=== PATIENT | female | born 1930 | race Caucasian/White ===

== ENCOUNTER 2017-05-24 18:58 | Inpatient (IN) | payer MEDICARE, OTHER ==
--- NOTE | 2017-04-29 22:35 | NUR ---
PT DAUGHTER SOFYA DOUGHERTY GIVE ALL INFORMATION TO ADMIT THE PT PT UNABLE TO ASSESS
--- NOTE | 2017-05-19 22:10 | NUR ---
PT COMPLAINING OF PAIN GENERAL BODY 09/05. TYLENOL GIVEN ORDER AND REPOSITION PT FOR COMFORT.
[~2017-05-24] VITALS: Ht 165.1 cm; Wt 52.2 kg
--- NOTE | 2017-05-24 18:59 | NUR ---
PT PLACED IN BED 3 BY EMS
[2017-05-24 19:04] VITALS: BP 125/65
--- NOTE | 2017-05-24 19:30 | NUR ---
87Y/F BIBA D/T ALOC. PT WAS LAST SEEN "NORMAL" AT 0830 AT DIALYSIS PER EMS. PT NORMALLY ABLE TO SPEAK AND HOLD CONVERSATION, PT IS AWAKE AND ALERT AT THIS TIME AND FOLLOWING COMMANDS BUT UNABLE TO SPEAK. PT IS MOANING TO PAINFUL STIMULI. PT HAS MULTIPLE BRUISES AND LARGE HEMATOMA TO LEFT SIDE OF HEAD FROM PREVIOUS FALL. PT IN BED SIDE RALS UP X2.
[2017-05-24] MEDS ORDERED: ACETAMINOPHEN 650 MG SUPP RC ONE (19:35)
[2017-05-24] MEDS ORDERED: VANCOMYCIN 1,000 MG in DEXTROSE 5% 250 ML IV ONE (20:50)
[2017-05-24] MEDS ORDERED: LEVOFLOXACIN 750 MG/D5W PREMIX 150 ML IV ONE (20:50)
--- NOTE | 2017-05-24 21:30 | NUR ---
UNABLE TO COLLECT URINE SPECIMEN AT THIS TIME, PT REFUSED AT THIS TIME.
[2017-05-24] MEDS ORDERED: DOCUSATE SODIUM 100 MG GELCAP PO PRN (21:55)
--- NOTE | 2017-05-24 21:57 | NUR ---
Patient noted to have existing wounds upon arrival to ER. Photos taken of wound and placed in chart. Wound covered with dressing. Physician informed.
--- NOTE | 2017-05-24 22:00 | NUR ---
LAB UNABLE TO DRAW BLOOD, STATES "PT TO DEHYDRATED", GABBY CALZADA MADE AWARE.
[2017-05-24] MEDS ORDERED: SYN.075 PO (22:11)
[2017-05-24] MEDS ORDERED: VANCOMYCIN 1,000 MG VIAL ONE (22:11)
[2017-05-24] MEDS ORDERED: [UNRECOGNIZED DRUG - CODE] PO (22:11)
[2017-05-24] MEDS ORDERED: ACET-2619 PO (22:11)
[2017-05-24] MEDS ORDERED: SEVE400T PO (22:11)
[2017-05-24] MEDS ORDERED: PRO5 PO (22:11)
[2017-05-24] MEDS ORDERED: WARF1TAB PO (22:11)
[2017-05-24] MEDS ORDERED: DIGO0.121 PO (22:11)
[2017-05-24] MEDS ORDERED: BUPR-10 PO (22:11)
--- NOTE | 2017-05-24 22:18 | NUR ---
LAB CALLED TO REDRAW LABS, LAB WILL REDRAW ON THE FLOOR, GABBY CALZADA MADE AWARE. UNABLE TO START IV ABX DUE TO UNABLE TO DRAW LABS. GABBY CALZADA MADE AWARE.
--- NOTE | 2017-05-24 22:24 | NUR ---
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 DIFF HX. NEED ISOLATION BED ON FLOOR.
[2017-05-24 22:35] VITALS: BP 144/62
--- NOTE | 2017-05-24 22:35 | NUR ---
PT BEING SENT TO FLOOR W/ ABX LEVAQUIN AND VANCOMYCIN. UNABLE TO START IV ABXS D/T LAB UNABLE TO DRAW CULTURES FROM PT.
--- NOTE | 2017-05-24 22:35 | NUR ---
PT ADMITTING FROM ER VIA RACHEL AT [id number]
--- NOTE | 2017-05-24 22:37 | NUR ---
Patient will be admitted to care of [facility]. Admited to TELE. Will go to room 116. Belongings list completed. Report to EDGAR. Addendum: 05/25/17 at 0556 by VetCloudMINH PT ADMITED VSS STABLE TO THAT OF ARRIVAL TO ED.
[2017-05-24] MEDS ORDERED: ALBUTEROL SULFATE/IPRATROPIU 3 ML SOL IH ONE (23:22)
[2017-05-24] MEDS ORDERED: DEXTROSE 50% 50 ML SYR IVP ONE (23:24)
[2017-05-24] MEDS ORDERED: DEXTROSE 50% 50 ML SYR IVP SCH (23:25)
[2017-05-24] MEDS ORDERED: ALBUTEROL SULFATE/IPRATROPIU 3 ML SOL IH SCH (23:30)
--- NOTE | 2017-05-24 23:35 | NUR ---
RECEIVED PT FROM ER VIA GURNEY PT ON NON REBREATHING MASK 02 SAT 80% PT ON LABORED BREATHING RESP THERAPY WAS CALLED AND IMMEDIATELY AT PT SIDE ASSISTING TO STABILIZER RESP STATUS PT ON TELEMETRY VARIABLE FLUTTER 97 BP 144/62 TEMP 100.6 PT HAS MULTIPLES WOUND FOR ALL HER BODY AND A BIG BUMP ON LEFT FOREHEAD BRUISES, HL ON RT HAND AND INDEX FINGER GAUGE 24 , DIALYSIS PT AV SHUNT ON LEFT UPPER ARM RELATIVES AT BED SIDE . Addendum: 05/25/17 at 0029 by Danielle Mendoza RN PT ADMITTING FROM ER AT [id number]
--- NOTE | 2017-05-24 23:38 | NUR ---
BLOOD SUGAR TEST 58 D5% 50 ML GIVEN IV PUSH BY RESIDENT ORDER AND ALSO BLOOD GASES ORDER PENDING RESULT
--- NOTE | 2017-05-24 23:38 | NUR ---
9805 rapid response called. hhntx given and abg drawn. pt on nrb mask at 100%. abg drawn on hhntx 8l flow.unable to get pox reading patients fingers are to cold. dr chris at bedside
[2017-05-24] MEDS: NACL 0.9% 1,000 ML IV SCH (23:39)
[2017-05-25] VITALS (12 sets, daily range): BP systolic 91–131; BP diastolic 44–63
--- NOTE | 2017-05-25 | NUR ---
PT TRANSFER TO ICU TO BED #3 LEVAQUIN INFUSING AND PENDING TO INFUSED VANCOMYCIN,
--- NOTE | 2017-05-25 | NUR ---
PATIENT RECEIVED TRANSFERRED FROM TELEMETRY ON A GURNEY WITH 2 STAFF AND FAMILY. PATIENT AWAKE, LETHARGIC. SKIN WARM AND DRY TO TOUCH, NOTED FINGERTIPS CYANOTIC AND COLD TO TOUCH. RESPIRATIONS OF 28 BPM ON O2 WITH NON-REBREATHER MASK AT 10 LPM. ATTACHED TO LEADS FOR MONITORING. NOTED MULTIPLE SKIN ISSUES. PATIENT HAS A BUMP TO THE LEFT SIDE OF THE FOREHEAD, MULTIPLE SCABS ALL OVER THE BODY, LEFT UPPER ARM AV SHUNT, NO BLEEDING NOTED, +/+ BRUITS AND THRILLS.
[2017-05-25] MEDS ORDERED: ALBUTEROL SULFATE/IPRATROPIU 3 ML SOL IH PRN (00:10)
--- NOTE | 2017-05-25 00:10 | NUR ---
PATIENT NOTED BECOMING LESS RESPONSIVE, FEELING COOL TO TOUCH. CHECKED BLOOD SUGAR 11 MG/DL. RECHECKED BLOOD SUGAR 12 MG/DL. GIVEN D50 IVP. WILL CONTINUE TO MONITOR PATIENT.
[2017-05-25] MEDS ORDERED: DEXTROSE 50% 50 ML SYR IVP ONE (00:22)
--- NOTE | 2017-05-25 00:30 | NUR ---
PATIENT INCONTINENT OF BM, INCONTINENT CARE PROVIDED, TURNED AND REPOSITIONED PATIENT. WILL CONTINUE TO MONITOR.
[2017-05-25] MEDS ORDERED: DEXT 5% / NACL 0.45% 1,000 ML IV STA (00:32)
--- NOTE | 2017-05-25 01:10 | NUR ---
PLACED PATIENT ON 8L OXYMIZER. SATS 100%.
--- NOTE | 2017-05-25 01:21 | NUR ---
RECHECKED BLOOD SUGAR WITH RESULT OF 114 MG/DL. DR. YOON CALLED AT [phone] AND NOTIFIED OF RESULTS.
[2017-05-25] MEDS: ONDANSETRON 4 MG/2 ML VIAL IM/IVP PRN ×2 (03:42→09:09)
--- NOTE | 2017-05-25 03:49 | NUR ---
RECHECKED BLOOD SUGAR 85 MG/DL. PATIENT AWAKE AND VERBALLY RESPONSIVE, COMPLAINING OF FEELING NAUSEOUS GIVEN ZOFRAN 4 MG IVP ORDERED. WILL CONTINUE TO MONITOR.
[2017-05-25] MEDS ORDERED: PIPERACILLIN/TAZOBACTAM 2.25 GM VIAL IV ONE (04:07)
[2017-05-25] MEDS: PIPER/TAZO 2.25GM/D5W PREMIX 50 ML IV SCH ×3 (05:27→21:10)
[2017-05-25 06:05] LABS: ANION GAP 10.1 (8-16); CARBON DIOXIDE 26.8 mmol/L (21-32); CHLORIDE 105 mmol/L (98-107); GLUCOSE 75 mg/dL (74-106); POTASSIUM 3.9 mmol/L (3.5-5.1); SODIUM SERUM 138 mmol/L (136-145); UREA NITROGEN, BLOOD 35 mg/dL (7-18)
[2017-05-25 06:07] LABS: HEMATOCRIT 35.6 % (36-48); HEMOGLOBIN 11.7 g/dL (12.0-16.0); MEAN CORPUSCULAR HEMOGLOBIN 34 pg (27-31); MEAN CORPUSCULAR HGB CONC 33 g/dL (33-37); MEAN CORPUSCULAR VOLUME 102 fL (80-94); PLATELET COUNT (AUTO) 138 K/uL (140-450); RED BLOOD CELL COUNT(AUTO) 3.49 MIL/uL (4.20-5.40); RED CELL DISTRIBUTION WIDTH 18.4 % (11.6-13.7); WHITE BLOOD COUNT (AUTO) 14.3 K/uL (4.8-10.8)
[2017-05-25 06:11] LABS: ALBUMIN 1.5 g/dL (3.4-5.0); ASPARTATE AMINOTRANSFERASE 35 U/L (15-37); TOTAL BILIRUBIN 3.2 mg/dL (0.0-1.0)
[2017-05-25 06:23] LABS: PROTHROMBIN TIME 20.6 secs (10.8-13.4)
[2017-05-25] MEDS ORDERED: ALBUTEROL SULFATE/IPRATROPIU 3 ML SOL IH SCH (07:00)
--- NOTE | 2017-05-25 07:10 | NUR ---
DECREASED FIO2 FROM 9L OXYMIZER TO 5 L OXYMIZER SPO2 100
[2017-05-25 07:15] LABS: CHOL/HDL RATIO 3.4 (1-4.5); MAGNESIUM 1.6 mg/dL (1.8-2.4); PHOSPHORUS 2.1 mg/dL (2.5-4.9)
--- NOTE | 2017-05-25 07:15 | NUR ---
PT'S TROPONIN 0.155. CALLED AND PAGED DR. BOX AND RESIDENT GROUP TO REPORT. AWAITING CALL BACK AND WILL FOLLOW UP.
[2017-05-25 07:16] LABS: FREE T4 (FREE THYROXINE) 1.72 ng/dL (0.76-1.46); THYROID STIMULATING HORMONE 3.19 uIU/mL (0.34-3.74)
--- NOTE | 2017-05-25 07:20 | NUR ---
REPORT RECEIVED FROM NIGHT NURSE. PT IS AWAKE, ALERT AND ORIENTED X2, LETHARGIC. SINUS RHYTHM ON MONITOR. ON O2 OXIMIZER AT 5 L/MIN, O2 SAT 100%, NO SOB NOTED. BILATERAL LUNGS CLEAR. PERIPHERAL IVS G24 TO RIGHT HAND AND RIGHT FOREARM PATENT AND INTACT, PT RECEIVING NORMAL SALINE AT 100 ML/HR. ABDOMEN SOFT, NONDISTENDED AND NONTENDER. MULTIPLE SKIN ISSUES AND A BUMP ON LEFT FOREHEAD NOTED. SKIN IS DRY AND WARM TO TOUCH. NO COMPLAINT OF PAIN. FLACC 0. AV SHUNT TO LEFT UPPER ARM, NO BLEEDING NOTED, + BRUITS AND THRILLS. NO S/SX OF ACUTE DISTRESS. HOB 30 DEGREES, BED IN LOW POSITION AND CALL LIGHT WITHIN REACH. WILL CONTINUE TO MONITOR. Addendum: 05/25/17 at 0847 by Jyothi Munguia RN Abram. FIB ON MONITOR
[2017-05-25 07:22] LABS: LYMPHOCYTES % (MANUAL) 4 % (20-46); MONOCYTES % (MANUAL) 3 % (5-12)
--- NOTE | 2017-05-25 07:25 | NUR ---
SPOKE TO DR. FORD, MADE AWARE PTT 54.8, NO NEW ORDERS GIVEN A T THIS TIME.
--- NOTE | 2017-05-25 07:58 | NUR ---
ASSISTED PT WITH BREAKFAST. ATE 10% OF BREAKFAST AND STATED SHE DOES NOT WANT TO EAT ANYMORE. WILL CONTINUE TO MONITOR.
--- NOTE | 2017-05-25 08:20 | NUR ---
ZOSYN ONE TIME DOSE GIVEN DURING BRIDGE ATTACHER.
--- NOTE | 2017-05-25 08:35 | NUR ---
DR. BOX AND RESIDENT GROUP IN TO SEE PT. WILL FOLLOW UP ON ORDERS.
[2017-05-25] MEDS: NACL 0.9% 1,000 ML IV SCH ×2 (08:54→13:25)
--- NOTE | 2017-05-25 08:59 | NUR ---
PATIENT HAS BEEN SCREENED AND CATEGORIZED MODERATE NUTRITION RISK. PATIENT WILL BE SEEN WITHIN 3-5 DAYS OF ADMISSION. 05/26/17-05/28/[address]
[2017-05-25] MEDS ORDERED: BUPROPION HCL 100 MG PO SCH (09:00)
[2017-05-25] MEDS: LEVOTHYROXINE 0.075 MG TAB PO SCH ×3 (09:10→16:21)
[2017-05-25] MEDS: SEVELAMER CARBONATE 800 MG TAB PO SCH ×3 (09:10→16:21)
[2017-05-25] MEDS: MIDODRINE 5 MG TAB PO SCH ×3 (09:10→16:22)
[2017-05-25] MEDS: buPROPion 100 MG TAB PO SCH ×2 (09:10→21:10)
[2017-05-25] MEDS: DIGOXIN 0.125 MG TAB PO SCH (09:11)
--- NOTE | 2017-05-25 09:50 | NUR ---
MEDICATIONS ADMINISTERED. PT SPITTED OUT CRUSHED RENVELA. PHARMACIST AWARE AND WILL DELIVER ANOTHER PILL. PT C/O NAUSEA. PRN ZOFRAN GIVEN ORDERED. WILL ADMINISTER RENVELA AFTER NAUSEA SUBSIDES. WILL CONTINUE TO MONITOR.
--- NOTE | 2017-05-25 10:31 | NUR ---
DECREASE OXYMIZER TO 3L SPO2 100
--- NOTE | 2017-05-25 11:00 | NUR ---
PT'S NAUSEA SUBSIDES. NO PROBLEM SWALLOWING MEDICATIONS. FAMILY AT BEDSIDE. VSS. FLACC 0. NO CHANGE IN CONDITION.
[2017-05-25] MEDS: ALBUTEROL 0.083% 2.5 MG/3 ML NEBU INH SCH ×4 (11:03→23:08)
--- NOTE | 2017-05-25 13:00 | NUR ---
MEDICATIONS ADMINISTERED. PT TOLERATED WELL. NO PROBLEM SWALLOWING CRUSHED PILLS MIXED WITH THICKENED WATER. FAMILY AT BEDSIDE. NO SOB OR ACUTE DISTRESS. WILL CONTINUE TO MONITOR.
[2017-05-25] MEDS: ACETAMINOPHEN 325 MG TAB PO PRN ×2 (13:12→22:11)
--- NOTE | 2017-05-25 14:02 | NUR ---
Clinical review faxed to [facility] at [phone]
--- NOTE | 2017-05-25 15:15 | NUR ---
PT RESTING COMFORTABLY. NO SOB OR ACUTE DISTRESS AT THIS TIME. FAMILY AT BEDSIDE. VITAL SIGNS STABLE. NO C/O PAIN. WILL CONTINUE TO MONITOR.
--- NOTE | 2017-05-25 15:39 | NUR ---
DECREASE OXYMIZER FOR 3L TO 2L SPO2 100
--- NOTE | 2017-05-25 16:30 | NUR ---
DR. GARZA IN TO SEE PT. WILL FOLLOW UP ON ORDERS.
[2017-05-25] MEDS ORDERED: WARFARIN 1 MG TAB PO SCH (17:00)
--- NOTE | 2017-05-25 17:49 | NUR ---
* ST NOTE * Pt seen at bedside w/daughter present. Pt asleep upon entering room. Upon awakening, pt alert and cooperative, reporting no c/o pain at this time. Pt consenting to evaluation w/daughter present. Bedside dysphagia and oral mechanism exams completed. See evaluation report for further details. Pt tolerating 3/3 alternating PO trials of puree apple sauce 3-4 CCs at a time via a spoon w/o s/s of aspiration. Pt also tolerating 2/3 alternating PO trials of 3-4 CCs of nectar-thick apple juice via a spoon w/o s/s of aspiration but pt exhibiting delayed residual cough after 1/3 PO trials of NTL. Pt and caregiver/daughter education completed regarding aspiration precautions and safe swallow compensatory strategies pt and caregivers/family/staff could utilize to aid pt w/swallow function, w/pt and caregiver/daughter verbalizing understanding and agreement. Because pt demonstrated delayed residual cough after 1/3 PO trials of NTL, it is recommended pt's PO diet consistency be modified to PUREE TEXTURES W/HONEY-THICKENED LIQUIDS for all meals, w/aspiration precautions in place. Pt, caregiver/daughter & caregiver/nsg education completed regarding results of evaluation; benefits of abiding by aspiration precautions & recommended PO diet consistency; and prognosis for improvement; with pt and caregivers/daughter & nsg verbailzing understanding and agreement w/clinician's recommendations. Recommend: - PO diet consistency of PUREE TEXTURES W/HONEY-THICK LIQUIDS for all meals - NO PO intake of liquids by straw - by spoon or cup only - Maintain STRICT ASPIRATION PRECAUTIONS during PO intake 2/2 to pt's dx of aspiration PNA - Sit pt up at 70-90 degree angle, feed slowly, alternating btwn solids & liquids & utilizing small sips/bites No further ST follow up recommended at this time. G8996 CK G8997 CJ G8998 CJ NOMS Level 3 Time In/Out 17:00 - 17:30
--- NOTE | 2017-05-25 17:50 | NUR ---
LEFT A VOICE MESSAGE TO [facility] FOR [facility]IALYSIS TOMORROW. WILL FOLLOW UP.
--- NOTE | 2017-05-25 18:16 | NUR ---
OFFERED DINNER TO PT. NO PROBLEM SWALLOWING. NO DISTRESS NOTED. WILL CONTINUE TO MONITOR.
--- NOTE | 2017-05-25 18:20 | NUR ---
RECEIVED A CALL BACK FROM [facility]. PT'S DIALYSIS SCHEDULED FOR TOMORROW 05/26/17.
--- NOTE | 2017-05-25 19:28 | NUR ---
DR. RAGLAND IN TO SEE AND EXAMINE PT. ENDORSED REGISTERED NURSING PROFESSOR TO FOLLOW UP ON ORDERS.
--- NOTE | 2017-05-25 19:30 | NUR ---
REPORT GIVEN TO LOT WORKER RN FOR CONTINUITY OF CARE. NO ACUTE DISTRESS NOTED. VITAL SIGNS STABLE.
--- NOTE | 2017-05-25 19:40 | NUR ---
RECEIVED PT FROM AM SHIFT. PT IS LYING ON THE BED. ALERT ORIENTED X3. ABLE TO ANSWER SIMPLE QUESTION. O2 AT 2-3 LPM VIA OXYMIZER.NOTED WITH DRY COUGH AND THICK YELLOW SECRETION. PT ABLE TO SPIT IT OUT.ATRIAL FIBRILLATION ON MONITOR. PT IS HEMODIALYSIS PT. AV SHUNT ON RIGHT UPPER ARM. PER AM SHIFT PT WILL HAVE DIALYSIS TOMORROW. CALABRESE NIRMAL FROM DIALYSIS AWARE. IV LINE TO RFA NO. 24 GOUGE AND TO RIGHT HAND NO 24. INTACT WELL.IVF NS AT 10 CC/HR RUNNING WELL. LINGS SOUND CLEAR. EDEMA TO BUE +3 NON PITTING.LEFT FOREHEAD HEMATOMA,MULTIPLE SKIN TEAR AND DISCOLORATION TO ALL EXTREMITIES. RIGHT AND LEFT LOWER LEGS WOUNDS. PER AM SHIFT ALREADY LEFT MESSAGE TO WOUND NURSE TO SEE PT IN AM. ABD SOFT NON DISTENDED. POSITIVE BOWEL SOUNDS IN ALL QUADRANTS.NO URINE NOTED. GENTLE CARE GIVEN.KEPT PT CLEAN AND DRY. CALL LIGHT IN REACH.
--- NOTE | 2017-05-25 20:00 | NUR ---
DENISE DAUGHTER AT BED SIDE.
[2017-05-25] MEDS ORDERED: [UNRECOGNIZED DRUG - MIXTURE] PO SCH (21:00)
--- NOTE | 2017-05-25 21:00 | NUR ---
RT MADE AWARE THAT PT HAS THICK YELLOW SECRETION WITH EPISODE OF HARD TO COUGH IT OUT.RT CHANGE THE OXUMIZER TO COOL MIST/AEROSOL TOLERATED WELL. NIGHT MEDS GIVEN ORDER TOLERATING WELL.
--- NOTE | 2017-05-25 22:20 | NUR ---
PT HAS X1 SMALL BM ,BROWN COLOR AND PASTE.CLEAN AND PT AND KEPT HER CLEAN.
--- NOTE | 2017-05-25 22:46 | NUR ---
LAB REPORTING THAT TROPONIN 1 RESULT IS 137 IS TRENDING DOWN FROM 164. CONTINUE TO MONITOR.
--- NOTE | 2017-05-25 23:11 | NUR ---
PT SLEEP WELL,NO S/S OF PAIN AT THIS TIME.
[2017-05-26] VITALS (11 sets, daily range): BP systolic 105–128; BP diastolic 46–58
--- NOTE | 2017-05-26 00:30 | NUR ---
CHANGE COOL MIST TO O2 AT 3 LPM VIA OXIMIZER TOLERATED WELL SPO2 100%.
--- NOTE | 2017-05-26 01:00 | NUR ---
[facility] N[facility]SE CALLING AND UP DATED PT STATUS TO HER.
--- NOTE | 2017-05-26 02:00 | NUR ---
REPOSITION PT FOR COMFORT. DENIES ANY PAIN AT THIS TIME.GENTLE CARE GIVEN/KEPT CLEAN ANS DRY.
[2017-05-26] MEDS: ALBUTEROL 0.083% 2.5 MG/3 ML NEBU INH SCH ×6 (03:17→23:04)
[2017-05-26] MEDS: PIPER/TAZO 2.25GM/D5W PREMIX 50 ML IV SCH ×3 (04:16→21:11)
--- NOTE | 2017-05-26 04:30 | NUR ---
AM CARE GIVEN. SPONGE BATH GIVEN. PT HAVE X1 SMALL BM. CLEANSE PT . NO URINE YET. KEPT PT CLEAN AND DRY. CALL LIGHT IN REACH.
--- NOTE | 2017-05-26 05:00 | NUR ---
DR HUBER MADE AWARE OF CT SCAN AND US CHEST/MEDIASTRUM ORDER. PER MD MAY TO DO IN AM ABOUT 8 OR 9 AM. SHE SAID PT ALREADY HAVE PREVIOUS CT SCAN. ALSO MADE MD AWARE THAT DR WRIGHT SAYING PT POSSIBLE TO TRANSFER TO TELE TO DAY. PER SHE WILL FOLLOW UP IN AM.
[2017-05-26 06:16] LABS: T4 (THYROXINE) 11.9 ug/dL (4.5-12.0)
[2017-05-26] MEDS: LEVOTHYROXINE 0.075 MG TAB PO SCH ×3 (06:48→17:11)
[2017-05-26] MEDS: ACETAMINOPHEN 325 MG TAB PO PRN ×2 (06:50→22:34)
[2017-05-26 07:24] LABS: HEMATOCRIT 34.7 % (36-48); HEMOGLOBIN 11.3 g/dL (12.0-16.0); MEAN CORPUSCULAR HEMOGLOBIN 34 pg (27-31); MEAN CORPUSCULAR HGB CONC 33 g/dL (33-37); MEAN CORPUSCULAR VOLUME 103 fL (80-94); PLATELET COUNT (AUTO) 138 K/uL (140-450); RED BLOOD CELL COUNT(AUTO) 3.37 MIL/uL (4.20-5.40); WHITE BLOOD COUNT (AUTO) 14.9 K/uL (4.8-10.8)
--- NOTE | 2017-05-26 07:30 | NUR ---
RECEIVED REPORT FROM JENISE Santacruz RN. AWAKENED PT FOR VITAL SIGNS AND REPOSITIONING. SL CONFUSED TO DATE, TIME AND PLACE. IV 0.9 NS AT 10 ML/HR VIA RT FA IV SITE. [place] APPRECIATED. DENIES ANY PAINS. FOLLOWS SIMPLE COMMANDS. DRESSINGS OVER BOTH LEGS DRY AND INTACT.
--- NOTE | 2017-05-26 07:45 | NUR ---
HOB ELEVATED 90 DEGREES. FED BREAKFAST. ATE 50 %. NO DIFF. IN SWALLOWING NOTED.
--- NOTE | 2017-05-26 08:00 | NUR ---
DAUGHTER DENISE AT BEDSIDE. CONSENT FOR HD SIGNED.
[2017-05-26 08:02] LABS: LYMPHOCYTES % (MANUAL) 4 % (20-46); MONOCYTES % (MANUAL) 5 % (5-12)
[2017-05-26 08:06] LABS: PROTHROMBIN TIME 19.9 secs (10.8-13.4)
[2017-05-26] MEDS: MIDODRINE 5 MG TAB PO SCH ×3 (08:06→17:11)
[2017-05-26] MEDS: buPROPion 100 MG TAB PO SCH ×2 (08:07→21:11)
[2017-05-26] MEDS: DIGOXIN 0.125 MG TAB PO SCH (08:07)
[2017-05-26] MEDS: SEVELAMER CARBONATE 800 MG TAB PO SCH (08:07)
--- NOTE | 2017-05-26 08:07 | NUR ---
HEMODIALYSIS STARTED AT BEDSIDE BY HD NURSE.
[2017-05-26 08:08] LABS: ANION GAP 11.8 (8-16); CARBON DIOXIDE 29.2 mmol/L (21-32); CHLORIDE 100 mmol/L (98-107); GLUCOSE 76 mg/dL (74-106); SODIUM SERUM 136 mmol/L (136-145); UREA NITROGEN, BLOOD 58 mg/dL (7-18)
[2017-05-26 08:10] LABS: CREATININE 4.8 mg/dL (0.6-1.3)
[2017-05-26 08:12] LABS: PHOSPHORUS 3.8 mg/dL (2.5-4.9)
[2017-05-26] MEDS ORDERED: Z-GUARD PASTE TP PRN (08:45)
--- NOTE | 2017-05-26 08:45 | NUR ---
PT. IS ON HD WILL VISIT PT AGAIN LATER. SPOKE TO DAUGHTER, RUTH, AT BED SIDE AND REVIEW PT'S WOUNDS HISTORY WITH DISCUSSION OF MULTIPLE SITES PRESSURE ULCER INJURIES, DAUGHTER AWARE OF IT AND STATE "POSSIBLE HAPPENED AT PREVIOUS HOSPITALIZATION" DAUGHTER ALSO MADE AWARE OF PT'S CURRENT CONDITION AND COMORBIDITIES RELATE TO DELAY WOUND HEALING AND FURTHER SKIN BREAKDOWN. DAUGHTER VERBALIZES UNDERSTAND.
--- NOTE | 2017-05-26 09:00 | NUR ---
HEMODIALYSIS IN PROGRESS. DIGOXIN HELD.
[2017-05-26] MEDS: ONDANSETRON 4 MG/2 ML VIAL IM/IVP PRN (09:20)
--- NOTE | 2017-05-26 09:20 | NUR ---
MED. WITH ZOFRAN ORDERED FOR FEELING OF NAUSEA.
--- NOTE | 2017-05-26 09:30 | NUR ---
This sheet writer contacted [facility] facility spoke to Lili to discuss patients status. manager financial systems Lili stated and confirmed that Patient is on a bed hold and will be welcome to return to their facility when patient is discharge for MHCM. spring floor service worker thank her and ended call.
--- NOTE | 2017-05-26 09:45 | NUR ---
NO N/V NOTED, SLEEPING.
[2017-05-26] MEDS: CHLORHEXADINE GLUC 2% CLOTH TP SCH (10:00)
--- NOTE | 2017-05-26 10:00 | NUR ---
DR. HAWTHORNE HERE TO SEE AND EXAMINE PT.
--- NOTE | 2017-05-26 11:23 | NUR ---
HEMODIALYSIS COMPLETED.
--- NOTE | 2017-05-26 11:46 | NUR ---
ILIANA PT WITH MOD AMT YELLOW SECS
--- NOTE | 2017-05-26 12:15 | NUR ---
WOUND CARE EVALUATION NOTE: REASON FOR EVALUATION: MULTIPLE WOUNDS COMPLETE SKIN ASSESSMENT DONE ON THIS 87 Y/O FEMALE PATIENT FROM [facility] TO [facility], WITH INITIAL DIAGNOSIS OF CONFUSION. PAST MEDICAL HISTORY INCLUDE ESRD HD, S/P FALL EARLY APRIL, HYPOTHYROIDISM AND A -FIB S/P PACEMAKER PLACEMENT. ALL ABOVE INFORMATION OBTAINED FROM THE ADMISSION H&P AND DAUGHTER RUTH. LABS ARE WBC 14.9, H/H 11.3/34.7, GLUCOSE 76 AND ALBUMIN 1.5. CURRENT MEDS INCLUDE ALBUTEROL, DIGOXIN, LEVOTHYROXINE AND PIPERACILLIN. PATIENT IS CONFUSED AND UNABLE TO FOLLOW SIMPLE COMMANDS. SKIN WARM TO TOUCH MULTIPLE ECCHYMOSIS UPPER EXTREMITIES +2 EDEMA, LEFT UPPER ARM AV SHUNT, WITH DRY DRESSING IN PLACE. S/P PACEMAKER INSERTION TO RIGHT UPPER CHEST WITH DRY STERI STRIPS IN PLACE, AREA DRY AND CLEAN. TOENAILS ARE SHORT AND THICKENED, NO EDEMA, NO HAIR GROWTH, BILATERAL PEDAL PULSES PRESENT. CAPILLARY REFILLED < 2 SEC. BOWEL INCONTINENT. NEEDS MAX ASSISTANCE IN TURNING. PLAN OF CARE AND PRESSURE PREVENTIVE MEASURES DISCUSSED WITH PATIENT'S DAUGHTER, AND PRIMARY RN, DAUGHTER ABLE TO VERBALIZE UNDERSTANDING. DEBRIDEMENT OPTIONS DISCUSS WITH DAUGHTER, RUTH AND SHE ONLY AGREES WITH CHEMICAL DEBRIDEMENT AT THIS TIME. INTEGUMENTARY: UPPER AND LOWER EXTREMITIES, MULTIPLE ECCHYMOSIS WITH DRY SCALY SKIN LEFT FRONTAL HEAD HEMATOMA WITH SCAB 3X1.5CM SACRALCOCCYX TO PERIANAL IAD, RED AND MOIST DUE TO BOWEL INCONTINENCE BLE AND TOES WITH MULTIPLE DRY SCABS, LARGEST MEASURE 1.5X0.5 CM RIGHT MEDIAL LEG BELOW KNEE VENOUS STASIS ULCER 6X4 CM 90% BLACK ESCHAR, 10% GRANULATING TISSUE, NO DRAINAGE, NO ODOR RIGHT MEDIAL LOWER LEG VENOUS STASIS ULCER 2X0.5 CM WITH 100% YELLOW SLOUGH, NO DRAINAGE, NO ODOR LEFT HEEL DEEP TISSUE INJURY 3.5X2 CM, WITH 100% MAROON, NON BLANCHING RIGHT HEEL STAGE I PRESSURE ULCER INJURY 3X2 CM- 100% RED RECOMMENDATIONS: - APPLY HYDRAGUARD TO UPPER AND LOWER EXTREMITIES DRY SCALY SKIN BIDWC AND LEAVE IT OPEN TO AIR -CLEANSE BILATERAL HEELS WITH NS. PAT DRY, APPLY SKIN PROTECTIVE BARRIER WIPE BIDWC AND LEAVE IT OPEN TO AIR -SACRALCOCCYX AND PERIANAL AREAS: CLEANSE WITH MILD SOAP AND WATER, PAT DRY, APPLY Z GUARD BIDWC AND PRN WITH SOILING LEAVE OPEN TO AIR -PAINT MULTIPLE SCABS TO BLE AND FRONTAL HEAD WITH BETADINE BIDWC AND LEAVE OPEN TO AIR -CLEANSE RIGHT MEDIAL LOWER LEG 2 VENOUS STASIS ULCERS WITH NS, PAT DRY, APPLY THERAHONEY WITH ADAPTIC DRESSING, COVER WITH DRY DRESSING AND WRAP WITH KERLIX QD AND PRN IF SOILING -TURN AND REPOSITION PATIENT Q2H TO LEFT AND RIGHT SIDE ONLY TO OFFLOAD SACRALCOCCYX AND BUTTOCKS, WITH THE EXCEPTION DURING MEALTIMES. -ASSESS AND MONITOR SKIN CONDITION DURING POSITION CHANGE, PLEASE PAY ATTENTION TO SACRALCOCCYX, AND HEELS -OFFLOAD BILATERAL HEELS BY PLACING PILLOWS UNDER CALVES AT ALL TIMES, UNLESS OTHERWISE CONTRAINDICATED -HEEL RAISERS AT ALL TIMES -KEEP SKIN CLEAN AND DRY AT ALL TIMES. -PRESSURE REDISTRIBUTION SURFACE THERAPY. -RD CONSULT COMORBIDITIES RELATED TO WOUND HEALING AND SKIN BREAKS: AGE, ESRD WITH HD, CHRONIC VENOUS INSUFFICIENCY, LOW ALBUMIN LEVEL, DECREASE OF MOBILITY AND FUNCTIONAL ABILITY, ALSO, HOB ELEVATED THE MAJORITY OF THE DAY FOR MEDICAL CONDITION RECOMMENDATIONS DISCUSSED WITH PRIMARY RN WILL FOLLOW UP PATIENT Q7 -10 DAYS AND PRN. PLEASE CONTACT WOUND CARE NURSE FOR ANY QUESTIONS AND CHANGES OF SKIN CONDITION. Addendum: 05/26/17 at 1348 by Diamond Hong RN (Grace) LATE ENTRY: MIDLINE SPINE UPPER BACK STAGE I , 1X1 CM WITH SURROUNDING REDNESS AREA 6X3 CM INDICATED FURTHER DAMAGE, CLEANSE WITH NS, PAT DRY, APPLY OPTIFORM CHANGE Q7 DAYS AND PRN IF SOILING.
--- NOTE | 2017-05-26 13:06 | NUR ---
FAXED CONCURRENT REVIEW TO [facility] [phone] PHONE [phone] ONI
[2017-05-26] MEDS: Z-GUARD PASTE TP SCH (13:51)
[2017-05-26] MEDS ORDERED: DIGOXIN 0.125 MG TAB PO SCH (14:17)
[2017-05-26] MEDS ORDERED: LACTOBACILLUS RHAMNOSUS GG 1 EACH CAP PO SCH (14:46)
--- NOTE | 2017-05-26 15:00 | NUR ---
INCONTINENT OF SMALL AMT PASTY BROWN STOOLS. PERINEAL CARE DONE. CHLORHEXIDINE BATH GIVEN.
[2017-05-26 15:16] LABS: HEPATITIS A ANTIBODY IGM Negative (Negative); HEPATITIS B CORE AB TOTAL Negative (Negative); HEPATITIS B SURFACE ANTIBODY Non Reactive (.); HEPATITIS B SURFACE ANTIGEN Negative (Negative)
--- NOTE | 2017-05-26 15:45 | NUR ---
TO CT SCAN FOR CT SCAN OF HEAD PER BED ACCPD. BY RN AND OIL BURNER JOURNEYMAN.
--- NOTE | 2017-05-26 16:05 | NUR ---
BACK IN ICU POST CT SCAN OF HEAD.
--- NOTE | 2017-05-26 16:30 | NUR ---
DR. WRIGHT HERE TO SEE AND EXAMINE PT.
--- NOTE | 2017-05-26 16:37 | NUR ---
P.T. NOTES Pt WAS TRANSFERRED TO ICU; WILL AWAIT FOR P.T. EVAL WHEN APPROPRIATE.
--- NOTE | 2017-05-26 16:47 | NUR ---
I contacted Patient's daughter Pracih Sutherland at as a courtesy call to discuss confirm and gather some information about Patient. Prachi was very pleased with the call and thank social psychologist for following up with patients care. she stated and confirmed that she is to make decisions for patient when she is not able. Prachi also stated to that patient will be going back to same facility after discharge. ([facility]). This radio script writer inform her that I had already contacted [facility] and that I spoke to Lili to discuss patients status and that case liner Lili stated and confirmed that Patient is on a bed hold and will be welcome to return to their facility when patient is discharge for MHCM. Prachi thank social psychologist and stated that Patient is very comfortable in facility and wants to go back. Prachi stated that Patient gets Dialysis every Mondays, Wednesdays, and Fridays and patient get's transported by [facility] to her sitting time at 8:45 and gets berry picker machine operator at about 1:00pm at [facility] in [place]. Patient's daughter stated having no more questions and again thank social psychologist for the assistance in coordinating care for her mother.
--- NOTE | 2017-05-26 18:00 | NUR ---
DAUGHTER DENISE AT BEDSIDE. FED PT. HOB ELEVATED WHILE EATING. PT MORE ALERT AND CONVERSANT.
--- NOTE | 2017-05-26 19:51 | NUR ---
REPORT GIVEN TO ANTHONY MENDOZA.
--- NOTE | 2017-05-26 19:52 | NUR ---
RECEIVED REPORT FORM JORGE RN AT BEDSIDE, PT IS AAOX3, ABLE TO FOLLOW COMMANDS AND MAKE NEEDS KNOWN. DENIES PAIN, VSS. NO S/S OF SOB/DISTRESS, CLEAR LUNG SOUNDS, ON O2 AT 2L VIA NC, DENIES CHEST PAIN, SR ON PRESIDENT AND CHIEF OPERATING OFFICER, PACEMAKER INTACT, SOFT ABDOMEN WITH ACTIVE BOWEL SOUNDS, PUREED DIET NOTED, ANURIA NOTED, DIALYSIS ACCESS TO [facility], HD TODAY WITH 1100ML OUTPUT PER REPORT, ABLE TO MOVE ALL EXTREMITIES, GENERALIZED WEAKNESS NOTED. PERIPHERAL LINE TO RIGHT FOREARM 24GA, PATENT, AND TKO. SKIN IN WARM AND DRY TO TOUCH, (SEE WOUND ASSESSMENT). SCD ON BLE, HOB ELEVATED 30 DEGREES, SAFETY MEASURE AND SEIZURE PRECAUTION IN PLACE, WILL CONTINUE TO MONITOR.
--- NOTE | 2017-05-26 21:10 | NUR ---
SCHEDULED MEDICATION GIVEN, PT TOLERATED WELL.
[2017-05-27] VITALS: BP 116/48
--- NOTE | 2017-05-27 | NUR ---
PT IS RESTING IN BED, NO S/S OF DISTRESS, VSS, POSITION CHANGED FOR OFF LOAD PRESSURE.
[2017-05-27] MEDS: Z-GUARD PASTE TP SCH ×2 (01:04→13:02)
[2017-05-27] MEDS: ALBUTEROL 0.083% 2.5 MG/3 ML NEBU INH SCH ×6 (03:09→22:59)
[2017-05-27 04:00] VITALS: BP 110/48
--- NOTE | 2017-05-27 04:00 | NUR ---
TRANSFERRED PT VIA GURNEY TO [facility] ROOM 122B, REPORT GIVEN TO KELLY NICHOLS AT BEDSIDE FOR CONTINUE OF CARE, PT IS IN STABLE CONDITION AT THIS TIME. VSS. DENIES PAIN. Addendum: 05/27/17 at 0419 by Aura Soria RN ALL BELONGS AND MEDICATIONS GIVEN TO NURSE.
--- NOTE | 2017-05-27 04:05 | NUR ---
RECEIVED REPORT FROM ICU NURSE, PATIENT RESTING IN BED, AWAKE ALERT ORIENTED X1, NO S/S OF DISTRESS NOTED, RESPIRATION EVEN AND UNLABORED, ON NC O2 2L. IV PATENT AND INTACT, FLUSHED WITH 10CC NS. CALL LIGHT WITHIN REACH, SAFETY MEASURE ENSURED, WILL CONTINUE TO MONITOR.
[2017-05-27] MEDS: PIPER/TAZO 2.25GM/D5W PREMIX 50 ML IV SCH ×3 (05:28→20:57)
--- NOTE | 2017-05-27 05:30 | NUR ---
DUE ZOSYN STARTED, PATIENT TOLERATED WELL, NO S/S OF DISTRESS NOTED, SAFETY MEASURE ENSURED, WILL CONTINUE TO MONITOR.
--- NOTE | 2017-05-27 06:45 | NUR ---
PATIENT RESTING IN BED, NO S/S OF DISTRESS NOTED, RESPIRATION EVEN AND UNLABORED, REPOSITIONED PATIENT WITH THE BIT AND SHANK DEPARTMENT SUPERVISOR, CALL LIGHT WITHIN REACH, SAFETY MEASURE ENSURED, WILL CONTINUE TO MONITOR.
--- NOTE | 2017-05-27 07:22 | NUR ---
ENDORSED PLAN OF CARE TO DAY SHIFT RN, PATIENT IS IN STABLE CONDITION.
--- NOTE | 2017-05-27 07:30 | NUR ---
RECEIVED REPORT FROM CLINICAL TECHNOLOGIST NURSE, PT IS RESTING IN BED, A/OX1-2, BEDREST, PT HAS IV ON HER RIGHT FA, PATENT, INTACT, FLUSHING WELL, PT HAS HEMATOMA ON LEFT SIDE OF HER HEAD, DTI ON LEFT HEEL, SCAB ON LEFT LEG, RT HEEL PRESSURE ULCER, RT LEG PRESSURE ULCER, PERINEUM DERMATITIS, NO S/S OF RESPIRATORY DISTRESS OR DISCOMFORT NOTED, DISCUSSED PLAN OF CARE WITH PT, REINFORCEMENT NEEDED, SAFETY/FALL PRECAUTIONS ARE IN PLACE, CALL LIGHT IS WITHIN REACH, WILL CONTINUE TO MONITOR.
[2017-05-27] MEDS: LEVOTHYROXINE 0.075 MG TAB PO SCH ×3 (07:37→17:24)
[2017-05-27 08:00] VITALS: BP 122/55
--- NOTE | 2017-05-27 08:39 | NUR ---
RECEIVED PHONE CALL FROM [employer], SHE WAS NOT ABLE TO DRAW BLOOD FROM THE PATIENT THIS MORNING. WILL SEND SOMEONE ELSE LATER TO TRY AGAIN, PT IS A HARD STICK.
[2017-05-27] MEDS ORDERED: LACTOBACILLUS RHAMNOSUS GG 1 EACH CAP PO SCH (09:00)
[2017-05-27] MEDS: DIGOXIN 0.125 MG TAB PO SCH (09:56)
[2017-05-27] MEDS: buPROPion 100 MG TAB PO SCH ×2 (09:56→20:57)
[2017-05-27] MEDS: MIDODRINE 5 MG TAB PO SCH ×3 (09:56→17:24)
--- NOTE | 2017-05-27 09:56 | NUR ---
ADMINISTERED MORNING MEDICATIONS. APICAL HEART RATE 64 BPM. PATIENT TOLERATED THEM WELL. NO SIGNS OF DISTRESS NOTED. PATIENT DENIES PAIN. SAFETY PRECAUTIONS IN PLACE, BED ON LOWEST SETTING, BED ALARM ON, CALL LIGHT WITHIN REACH. WILL CONTINUE TO MONITOR PATIENT.
--- NOTE | 2017-05-27 10:00 | NUR ---
SPOKE TO DR. LOU, ASKED HIM IF HE STILL WANTED THE COUMADIN TO BE HELD FOR THE PT. PER DR. LOU, IF THE PATIENT'S NEW INR IS LESS THAN 2.0 GIVE 2MG COUMADIN.
[2017-05-27] MEDS: CHLORHEXADINE GLUC 2% CLOTH TP SCH (10:13)
[2017-05-27] MEDS: MUPIROCIN 2% OINT 22 GM TUBE TP SCH (11:03)
--- NOTE | 2017-05-27 11:20 | NUR ---
PT SLEEPING IN BED AT THIS TIME, CALL LIGHT WITHIN REACH.
[2017-05-27 11:38] LABS: BASOPHILS # (AUTO) 0.1 K/uL (0.00-0.22); EOSINOPHILS # (AUTO) 0.1 K/uL (0-0.4); EOSINOPHILS % (AUTO) 0.9 % (0.0-4.0); HEMATOCRIT 33.2 % (36-48); HEMOGLOBIN 10.6 g/dL (12.0-16.0); LYMPHOCYTES # (AUTO) 0.4 K/uL (2.5-16.5); MEAN CORPUSCULAR HEMOGLOBIN 33 pg (27-31); MEAN CORPUSCULAR HGB CONC 32 g/dL (33-37); MEAN CORPUSCULAR VOLUME 103 fL (80-94); MONOCYTES # (AUTO) 0.4 K/uL (0.8-1.0); MONOCYTES % (AUTO) 3.7 % (1.7-9.3); NEUTROPHILS # (AUTO) 10.2 K/uL (1.8-7.7); NEUTROPHILS % (AUTO) 90.4 % (42.2-75.2); PLATELET COUNT (AUTO) 148 K/uL (140-450); RED BLOOD CELL COUNT(AUTO) 3.23 MIL/uL (4.20-5.40); RED CELL DISTRIBUTION WIDTH 17.8 % (11.6-13.7); WHITE BLOOD COUNT (AUTO) 11.2 K/uL (4.8-10.8)
[2017-05-27 11:50] LABS: ANION GAP 13.2 (8-16); CARBON DIOXIDE 30.8 mmol/L (21-32); CHLORIDE 98 mmol/L (98-107); SODIUM SERUM 138 mmol/L (136-145); UREA NITROGEN, BLOOD 42 mg/dL (7-18)
[2017-05-27 12:00] VITALS: BP 109/55
[2017-05-27 12:05] LABS: CREATININE 3.6 mg/dL (0.6-1.3); GLUCOSE 67 mg/dL (74-106)
--- NOTE | 2017-05-27 13:22 | NUR ---
PT RESTING IN BED AT THIS TIME, PATIENT'S DAUGHTER IS AT BEDSIDE, CALL LIGHT WITHIN REACH.
--- NOTE | 2017-05-27 13:31 | NUR ---
PATIENT EATING LUNCH. DAUGHTER AND AT BEDSIDE. ISOLATION PROTOCOL MAINTAINED BY FAMILY MEMBERS. SAFETY PRECAUTIONS IN PLACE. BED ON LOWEST SETTING, CALL LIGHT WITHIN REACH. WILL CONTINUE TO MONITOR PATIENT.
--- NOTE | 2017-05-27 14:38 | NUR ---
SPOKE TO BETITO TRUJILLO [facility] FOR TRANSPORT AUTHORIZATION #[id number].
[2017-05-27 16:00] VITALS: BP 126/54
[2017-05-27] MEDS ORDERED: WARFARIN 1 MG TAB PO SCH (17:00)
--- NOTE | 2017-05-27 17:30 | NUR ---
DUE MEDICATION GIVEN. PATIENT TOLERATED THEM WELL. DAUGHTER AT BEDSIDE. SAFETY PRECAUTIONS IN PLACE. BED IN LOWEST POSITION. CALL LIGHT WITHIN REACH. WILL CONTINUE TO MONITOR PATIENT.
--- NOTE | 2017-05-27 18:02 | NUR ---
SPOKE TO GUANAKITO, DIALYSIS NURSE, I LET HER KNOW THE PATIENT WAS ORDERED TO HAVE DIALYSIS DONE TOMORROW 05/28/17.
--- NOTE | 2017-05-27 19:21 | NUR ---
GAVE REPORT TO BOAT OUTBOARD ENGINE MECHANIC RN AT BEDSIDE FOR CONTINUITY OF CARE. PATIENT IN STABLE CONDITION.
--- NOTE | 2017-05-27 19:22 | NUR ---
RECEIVED REPORT FROM DAY SHIFT NURSE. PT LYING COMFORTABLY IN BED. PT'S DAUGHTER AT BEDSIDE. AAOX2. IV TO RIGHT FA, INTACT AND PATENT. AV SHUNT TO LEFT UPPER ARM WITH DRESSING, DRY,CLEAN AND INTACT. PT HAS HEMATOMA ON LEFT SIDE OF HER HEAD. NO RESPIRATORY DISTRESS OR DISCOMFORT NOTED. DISCUSSED PLAN OF CARE WITH PT AND DAUGHTER, DAUGHTER VERBALIZED UNDERSTANDING. SAFETY AND FALL PRECAUTIONS IN PLACE. CALL LIGHT WITHIN REACH. WILL CONTINUE TO MONITOR.
[2017-05-27 20:00] VITALS: BP 123/55
--- NOTE | 2017-05-27 21:40 | NUR ---
PT'S DAUGHTER STATED THAT THERE'S A MINIMAL AMOUNT OF BLOOD ON THE PT'S LEFT HEAD HEMATOMA. DR. BREEN MADE AWARE AND ORDERED TO PUT A DRESSING. DRESSING APPLIED.
--- NOTE | 2017-05-27 23:00 | NUR ---
RT D/C O2 2 L/MIN. PT'S O2 SAT 96% ON ROOM AIR. NO DISTRESS NOTED.
[2017-05-28] VITALS: BP 111/57
[2017-05-28] MEDS: Z-GUARD PASTE TP SCH ×2 (01:16→13:07)
--- NOTE | 2017-05-28 01:50 | NUR ---
PT SLEEPING. NO S/S DISTRESS NOTED. SAFETY/FALL PRECAUTION IN PLACE. CALL LIGHT WITHIN REACH.
[2017-05-28] MEDS: ALBUTEROL 0.083% 2.5 MG/3 ML NEBU INH SCH ×4 (03:21→15:00)
[2017-05-28 04:00] VITALS: BP 116/62
[2017-05-28] MEDS: PIPER/TAZO 2.25GM/D5W PREMIX 50 ML IV SCH ×3 (04:51→21:12)
--- NOTE | 2017-05-28 04:55 | NUR ---
PT LYING COMFORTABLY IN BED, AWAKE. NO C/O PAIN OR DISCOMFORT NOTED. CALL LIGHT WITHIN REACH.
[2017-05-28] MEDS: LEVOTHYROXINE 0.075 MG TAB PO SCH ×3 (06:43→16:30)
--- NOTE | 2017-05-28 07:10 | NUR ---
ENDORSED PT TO DAY SHIFT NURSE. PT IN STABLE CONDITION.
--- NOTE | 2017-05-28 07:15 | NUR ---
RECEIVED REPORT FROM CONVEX GRINDER NURSE, PT IS RESTING IN BED, A/OX1, BEDREST, PT HAS IV ON HER RIGHT FA, PATENT, INTACT, FLUSHING WELL, PT HAS HEMATOMA ON LEFT SIDE OF HER HEAD, DTI ON LEFT HEEL, SCAB ON LEFT LEG, RT HEEL PRESSURE ULCER, RT LEG PRESSURE ULCER, PERINEUM DERMATITIS, NO S/S OF RESPIRATORY DISTRESS OR DISCOMFORT NOTED, DISCUSSED PLAN OF CARE WITH PT, REINFORCEMENT NEEDED, SAFETY/FALL PRECAUTIONS ARE IN PLACE, CALL LIGHT IS WITHIN REACH, WILL CONTINUE TO MONITOR.
[2017-05-28 08:00] VITALS: BP 110/52
[2017-05-28] MEDS: MIDODRINE 5 MG TAB PO SCH ×3 (08:52→16:56)
[2017-05-28] MEDS: buPROPion 100 MG TAB PO SCH ×2 (08:52→21:12)
--- NOTE | 2017-05-28 08:52 | NUR ---
DUE MEDICATIONS GIVEN, PT TOLERATED WELL, CALL LIGHT WITHIN REACH.
[2017-05-28] MEDS: LACTOBACILLUS RHAMNOSUS GG 1 EACH CAP PO SCH ×3 (08:53→16:56)
[2017-05-28] MEDS: CHLORHEXADINE GLUC 2% CLOTH TP SCH (10:14)
--- NOTE | 2017-05-28 11:00 | NUR ---
PT RESTING IN BED, NO S/S OF RESPIRATORY DISTRESS OR DISCOMFORT NOTED, CALL LIGHT WITHIN REACH.
[2017-05-28] MEDS: MUPIROCIN 2% OINT 22 GM TUBE TP SCH (11:02)
[2017-05-28 12:00] VITALS: BP 101/56
--- NOTE | 2017-05-28 12:28 | NUR ---
05/28/17 RD INITIAL ASSESSMENT COMPLETED PLEASE REFER TO NUTRITION ASSESSMENT UNDER CARE ACTIVITY FOR ESTIMATED NUTRITIONAL NEEDS. RD RECOMMENDATIONS: 1. CONTINUE ON CURRENT DIET OF RENAL/PUREED/NECTAR-THICKENED LIQUIDS TOLERATED. 2. RDN TO ADD DOUBLE PROTEIN PORTION AT ALL MEALS TID TO BETTER MEET ESTIMATED NUTRITION NEEDS FOR ESRD ON HD AND SUPPORT WOUND HEALING. 3. CONSIDER ADDING PROSOURCE WITH MEALS TID (180 KCAL, 45 GM PROTEIN) FOR WOUND HEALING SUPPORT. 4. CONSULT RDN PRN. 5. RD WILL F/U 2-3 DAYS; HIGH RISK. ELLEN LUU, , RDN
--- NOTE | 2017-05-28 13:15 | NUR ---
PT RESTING IN BED, PATIENT'S DAUGHTER IS AT BEDSIDE, CALL LIGHT WITHIN REACH.
[2017-05-28] MEDS: HYDROcodone/APAP 7.5/325 MG 1 TAB PO PRN (14:33)
[2017-05-28] MEDS ORDERED: SIMETHICONE 80 MG TAB.CHEW PO PRN (14:50)
--- NOTE | 2017-05-28 15:56 | NUR ---
PT RESTING IN BED, PATIENT'S DAUGHTER AND ARE AT PATIENT BEDSIDE, CALL LIGHT WITHIN REACH.
[2017-05-28 16:00] VITALS: BP 106/53
--- NOTE | 2017-05-28 16:56 | NUR ---
DIALYSIS NURSE IS AT PATIENT'S BEDSIDE AT THIS TIME. BLOOD DRAW TAKEN BY DIALYSIS NURSE AND TAKEN TO LAB.
[2017-05-28 17:34] LABS: ANION GAP 13.6 (8-16); CARBON DIOXIDE 27.4 mmol/L (21-32); CHLORIDE 100 mmol/L (98-107); GLUCOSE 131 mg/dL (74-106); SODIUM SERUM 137 mmol/L (136-145); UREA NITROGEN, BLOOD 51 mg/dL (7-18)
[2017-05-28 17:36] LABS: CREATININE 4.1 mg/dL (0.6-1.3)
[2017-05-28 17:37] LABS: HEMATOCRIT 31.9 % (36-48); HEMOGLOBIN 10.3 g/dL (12.0-16.0); MEAN CORPUSCULAR HEMOGLOBIN 32 pg (27-31); MEAN CORPUSCULAR HGB CONC 32 g/dL (33-37); MEAN CORPUSCULAR VOLUME 100 fL (80-94); PLATELET COUNT (AUTO) 168 K/uL (140-450); PROTHROMBIN TIME 21.2 secs (10.8-13.4); RED BLOOD CELL COUNT(AUTO) 3.19 MIL/uL (4.20-5.40); RED CELL DISTRIBUTION WIDTH 17.9 % (11.6-13.7); WHITE BLOOD COUNT (AUTO) 5.7 K/uL (4.8-10.8)
[2017-05-28 17:38] LABS: BASOPHILS # (AUTO) 0.1 K/uL (0.00-0.22); BASOPHILS % (AUTO) 2.1 % (0.0-2.0); EOSINOPHILS # (AUTO) 0.1 K/uL (0-0.4); LYMPHOCYTES # (AUTO) 1.4 K/uL (2.5-16.5); MONOCYTES # (AUTO) 0.1 K/uL (0.8-1.0); NEUTROPHILS % (AUTO) 69.9 % (42.2-75.2)
[2017-05-28 17:39] LABS: MAGNESIUM 1.8 mg/dL (1.8-2.4); PHOSPHORUS 3.2 mg/dL (2.5-4.9)
[2017-05-28] MEDS ORDERED: ALBUTEROL SULFATE/IPRATROPIU 3 ML SOL IH PRN (18:05)
--- NOTE | 2017-05-28 18:23 | NUR ---
PT IS RESTING IN BED HAVING DIALYSIS DONE AT THIS TIME, PATIENT'S DAUGHTER IS AT BEDSIDE, CALL LIGHT IS WITHIN REACH.
--- NOTE | 2017-05-28 19:04 | NUR ---
ENDORSED PT TO FLARE BREAKER NURSE FOR CONTINUITY OF CARE. PT STABLE AT THIS TIME, PATIENT'S DAUGHTER AND DIALYSIS NURSE ARE AT BEDSIDE.
--- NOTE | 2017-05-28 19:07 | NUR ---
RECEIVED REPORT FROM DAY SHIFT NURSE. AAOX2. HEMODIALYSIS ONGOING. DAUGHTER MARIO AT BEDSIDE. IV TO RIGHT FA, INTACT AND PATENT. PT HAS HEMATOMA ON LEFT SIDE OF THE HEAD WITH DRESSING CLEAN, DRY AND INTACT. NO RESPIRATORY DISTRESS NOTED. DISCUSSED PLAN OF CARE WITH PT AND DAUGHTER, DAUGHTER VERBALIZED UNDERSTANDING. SAFETY AND FALL PRECAUTIONS IN PLACE. CALL LIGHT WITHIN REACH. WILL CONTINUE TO MONITOR.
[2017-05-28 20:00] VITALS: BP 129/54
--- NOTE | 2017-05-28 20:25 | NUR ---
HEMODIALYSIS DONE. OUTPUT 1500. NO DISTRESS NOTED. DRESSING TO LEFT UPPER ARM AV FISTULA CLEAN, DRY AND INTACT. PT'S DAUGHTER AT BEDSIDE. CALL LIGHT WITHIN REACH. WILL CONTINUE TO MONITOR.
--- NOTE | 2017-05-28 23:00 | NUR ---
DR. DE ANDA CAME IN TO SEE PT. NO NEW ORDER.
[2017-05-29] VITALS: BP 124/56
[2017-05-29] MEDS: Z-GUARD PASTE TP SCH (01:06)
--- NOTE | 2017-05-29 01:30 | NUR ---
PT AWAKE, CALLING SOME NAMES. NO S/S OF DISTRESS NOTED. NO BLEEDING NOTED TO LEFT AV FISTULA. SAFETY/FALL PRECAUTION IN PLACE. CALL LIGHT WITHIN REACH.
--- NOTE | 2017-05-29 03:45 | NUR ---
PT SLEEPING. NO S/S OF DISTRESS NOTED. CALL LIGHT WITHIN REACH. FALL/SAFETY PRECAUTION IN PLACE.
[2017-05-29 04:00] VITALS: BP 116/56
[2017-05-29] MEDS: PIPER/TAZO 2.25GM/D5W PREMIX 50 ML IV SCH (04:54)
[2017-05-29] MEDS: LEVOTHYROXINE 0.075 MG TAB PO SCH (06:36)
--- NOTE | 2017-05-29 07:05 | NUR ---
RECEIVED PATIENT REPORT AT BEDSIDE. PATIENT AWAKE AND ALERT. NO S/S OF DISTRESS NOTED. PATIENT ON ROOM AIR. NO SOB. PATIENT ON TELE MONITORING. BED LOWERED WITH CALL LIGHT WITHIN REACH. WILL CONTINUE TO MONITOR
--- NOTE | 2017-05-29 07:05 | NUR ---
ENDORSED PT TO DAY SHIFT NURSE. PT IN STABLE CONDITION.
[2017-05-29 07:20] LABS: ANION GAP 13.6 (8-16); CARBON DIOXIDE 31.1 mmol/L (21-32); CHLORIDE 97 mmol/L (98-107); CREATININE 2.7 mg/dL (0.6-1.3); GLUCOSE 129 mg/dL (74-106); POTASSIUM 3.7 mmol/L (3.5-5.1); SODIUM SERUM 138 mmol/L (136-145); UREA NITROGEN, BLOOD 24 mg/dL (7-18)
[2017-05-29 07:46] LABS: HEMATOCRIT 32.7 % (36-48); HEMOGLOBIN 10.6 g/dL (12.0-16.0); MEAN CORPUSCULAR HEMOGLOBIN 33 pg (27-31); MEAN CORPUSCULAR HGB CONC 32 g/dL (33-37); MEAN CORPUSCULAR VOLUME 102 fL (80-94); PLATELET COUNT (AUTO) 128 K/uL (140-450); RED CELL DISTRIBUTION WIDTH 17.7 % (11.6-13.7); WHITE BLOOD COUNT (AUTO) 8.1 K/uL (4.8-10.8)
[2017-05-29 08:00] VITALS: BP 122/63
[2017-05-29] MEDS ORDERED: CHLO118S2 TP (08:13)
[2017-05-29] MEDS ORDERED: COU1 PO (08:13)
[2017-05-29] MEDS ORDERED: LEVO500T98 PO (08:13)
[2017-05-29] MEDS ORDERED: CLIN-187 PO (08:13)
[2017-05-29] MEDS ORDERED: LACT10CA PO (08:13)
[2017-05-29] MEDS ORDERED: BACTO TP (08:13)
[2017-05-29 08:16] LABS: EOSINOPHILS % (MANUAL) 1 % (0-4); LYMPHOCYTES % (MANUAL) 12 % (20-46); MONOCYTES % (MANUAL) 6 % (5-12)
[2017-05-29 08:28] LABS: MAGNESIUM 1.7 mg/dL (1.8-2.4); PHOSPHORUS 2.3 mg/dL (2.5-4.9)
--- NOTE | 2017-05-29 08:33 | NUR ---
CALLED [facility] FOR TRANSPORT, PATIENT TIME OF FOOD TASTER IS 10:00 AM.
[2017-05-29] MEDS: buPROPion 100 MG TAB PO SCH (08:52)
[2017-05-29] MEDS: MIDODRINE 5 MG TAB PO SCH (08:52)
[2017-05-29] MEDS: LACTOBACILLUS RHAMNOSUS GG 1 EACH CAP PO SCH (08:52)
[2017-05-29 08:53] LABS: PROTHROMBIN TIME 29.4 secs (10.8-13.4)
[2017-05-29] MEDS: HYDROcodone/APAP 7.5/325 MG 1 TAB PO PRN (10:11)
[2017-05-29] MEDS ORDERED: MULT-1469 PO ×2 (10:40→10:52)
[2017-05-29] MEDS: CHLORHEXADINE GLUC 2% CLOTH TP SCH (10:41)
[2017-05-29] MEDS: MUPIROCIN 2% OINT 22 GM TUBE TP SCH (11:08)
--- NOTE | 2017-05-29 11:09 | NUR ---
PATIENT REPORT GIVEN TO ANTHONY ROBERTS [facility]
--- NOTE | 2017-05-29 11:10 | NUR ---
PATIENT DISCHARGED TO [facility]. IV LINE DISCONTINUED. TELE LEADS TAKEN OFF. PATIENT LEFT WITH ALL HER BELONGINGS AND DISCHARGE PAPERS. DAUGHTER SIGNED ALL OF THE PATIENT'S DISCHARGE PAPERS. WOUND PHOTOS TAKEN. PATIENT LEFT IN STABLE CONDITION
--- NOTE | 2017-05-30 14:13 | NUR ---
This writter attempted to contact Patient's bilingual patient support caseworker at [facility] "Lili" to discuss and confirm that patient's after care and already arranged dialysis times re-instated and continues as scheduled with facility as the patient has discharge and returned to facility on 05/29/17. Per Shira at intake [facility] "bilingual patient support caseworker" was not available at the time and drug abuse social worker left her contact information and a request for a call back then ended call
== END 2017-05-29 11:00 | DRG 871 ==
LOC: MED 18:58 → MTU 21:04 → MIC 23:55 → MTU 05-27 04:00
PROVIDERS: ADMIT Family Medicine Sports Medicine; ATTEND Family Medicine Sports Medicine
PROC: 5A1D70Z Performance of Urinary Filtration, Intermittent, Less than 6 Hours Per Day (ICD-10-PCS; principal; 2017-05-26)
PROC: 5A1D70Z Performance of Urinary Filtration, Intermittent, Less than 6 Hours Per Day (ICD-10-PCS; 2017-05-28)
DX: A41.9 Sepsis, unspecified organism (principal); J69.0 Pneumonitis due to inhalation of food and vomit; J96.01 Acute respiratory failure with hypoxia; N17.0 Acute kidney failure with tubular necrosis; E43 Unspecified severe protein-calorie malnutrition; G93.41 Metabolic encephalopathy; I13.2 Hypertensive heart and chronic kidney disease with heart failure and with stage 5 chronic kidney disease, or end stage renal disease; E83.39 Other disorders of phosphorus metabolism; D69.6 Thrombocytopenia, unspecified; I50.43 Acute on chronic combined systolic (congestive) and diastolic (congestive) heart failure; N18.6 End stage renal disease; I27.81 Cor pulmonale (chronic); G90.9 Disorder of the autonomic nervous system, unspecified; E86.0 Dehydration; I48.2 Chronic atrial fibrillation; Z99.2 Dependence on renal dialysis; E03.9 Hypothyroidism, unspecified; F32.9 Major depressive disorder, single episode, unspecified; Z66 Do not resuscitate; E78.5 Hyperlipidemia, unspecified; I73.9 Peripheral vascular disease, unspecified; I35.0 Nonrheumatic aortic (valve) stenosis; I87.2 Venous insufficiency (chronic) (peripheral); E16.2 Hypoglycemia, unspecified; D53.9 Nutritional anemia, unspecified; E83.42 Hypomagnesemia; S00.83XA Contusion of other part of head, initial encounter; M17.0 Bilateral primary osteoarthritis of knee; Z79.01 Long term (current) use of anticoagulants; Z88.5 Allergy status to narcotic agent; Z79.899 Other long term (current) drug therapy; Z79.4 Long term (current) use of insulin; Z90.710 Acquired absence of both cervix and uterus; Z98.42 Cataract extraction status, left eye; Z98.41 Cataract extraction status, right eye; Z98.891 History of uterine scar from previous surgery; Z85.41 Personal history of malignant neoplasm of cervix uteri; Z87.11 Personal history of peptic ulcer disease; Y93.89 Activity, other specified; Y92.89 Other specified places as the place of occurrence of the external cause; Y99.8 Other external cause status
CPT/HCPCS: 36415; 36600; 70450; 71010; 76604; 80048; 80053; 80162; 82140; 82150; 82803; 82948; 83036; 83605; 83690; 83735; 83880; 84100; 84436; 84439; 84443; 84479; 84484; 85025; 85610; 85730; 86704; 86706; 86708; 86709; 86803; 87040; 87081; 87340; 90935; 92610; 93005; 93880; 93970; 94640; 97110; 99291; J1956; J2405; J2543; J3370; J7030; J7060; J7613; J7620; Q0092